=== PATIENT | female | born 1970 | race African-American/Black ===

== ENCOUNTER 2017-04-02 22:47 | Inpatient (IN) ==
[2017-04-03] MEDS ORDERED: KETOROLAC 30 MG/1 ML VIAL IV STA (00:45)
[2017-04-03] MEDS ORDERED: SODIUM CHLORIDE 0.9% 1,000 ML IV STA (00:45)
[2017-04-03] MEDS ORDERED: KETOROLAC 30 MG/1 ML VIAL ONE (00:51)
[2017-04-03 01:16] LABS: Basophils % 0.4 % (0.0-0.8); Hematocrit 34.8 VOL% (35.7-47.0); Hemoglobin 11.4 GM/DL (12.0-16.0); Immature Granulocytes % 0.4 %; Immature Granulocytes Absolute 0.02 #; Lymphocytes # 2.1 10*3/uL (1.4-4.0); Lymphocytes % 37.3 % (21.3-54.2); Mean Corpuscular HGB Conc 32.8 GM/DL (32-36); Mean Corpuscular Hemoglobin 26 PG (27-34); Mean Corpuscular Volume 79.8 FL (87-102); Mean Platelet Volume 10.1 FL (9.6-12.0); Monocytes # 0.4 10*3/uL (0.11-0.8); Monocytes % 6.6 % (1.7-12.7); Neutrophils # 3.1 10*3/uL (1.4-7.4); Neutrophils % 55.3 % (38.7-73.9); Platelet Count 200 T/CUMM (130-400); Red Blood Count 4.36 MC/CUMM (3.8-5.5); Red Cell Distribution Width 15.5 % (9.3-17.3); White Blood Count 5.6 T/CUMM (4-12)
[2017-04-03 01:31] LABS: Apearance,Urine CLEAR (Clear); Bilirubin,Urine Negative (Negative); Blood, Urine Negative (Negative); Glucose,Urine (UA) Negative (Negative); Ketones,Urine Negative (Negative); Nitrite,Urine Negative (Negative); Protein,Urine Negative; RBC,Urine <1 /HPF (0-4); Squamous Epithelial Cell,Urine Occasional /HPF (0-10); Urine Color Straw (Yellow); Urine Specific Gravity 1.009 (1.001-1.035); Urine Urobilinogen < 2.0 EU/DL (0.2-1.0)
[2017-04-03 01:36] LABS: Albumin 3.6 G/DL (3.4-5.0); Bilirubin,Total 0.4 MG/DL (0.2-1.0); Osmolality,Calculated 276.5 MOS/KG (273-304); Potassium 3.7 MMOL/L (3.5-5.1); Total Protein 7.1 G/DL (6.4-8.3)
[2017-04-03] MEDS ORDERED: ONDANSETRON 4 MG/2 ML VIAL IV STA (01:37)
[2017-04-03] MEDS ORDERED: HYDROmorphone 2 MG/1 ML VIAL IV STA (01:37)
[2017-04-03] MEDS ORDERED: ONDANSETRON 4 MG/2 ML VIAL ONE (01:39)
[2017-04-03] MEDS ORDERED: HYDROmorphone 2 MG/1 ML VIAL ONE (01:40)
[2017-04-03] MEDS ORDERED: amLODIPine 5 MG TABLET PO STA (03:01)
[2017-04-03] MEDS ORDERED: amLODIPine 5 MG TABLET ONE (03:03)
[2017-04-03] MEDS ORDERED: DOCUSATE SODIUM 100 MG CAPSULE PO PRN (04:26)
[2017-04-03] MEDS: ENOXAPARIN 40 MG/0.4 ML SYRINGE SUBCUT SCH (05:29)
[2017-04-03] MEDS: SODIUM CHLORIDE 0.45% 1,000 ML IV SCH ×2 (05:30→20:45)
[2017-04-03] MEDS ORDERED: INFLUENZA VIRUS VACCINE 0.5 ML SYRINGE IM ONE (06:00)
[2017-04-03] MEDS: amLODIPine 5 MG TABLET PO SCH (09:26)
[2017-04-03] MEDS: TRIAMTERENE/HCTZ 37.5-25 MG CAPSULE PO SCH (09:26)
[2017-04-03] MEDS: HYDROmorphone 2 MG/1 ML VIAL IV PRN ×2 (09:27→20:35)
[2017-04-04] MEDS: ENOXAPARIN 40 MG/0.4 ML SYRINGE SUBCUT SCH (06:17)
[2017-04-04] MEDS: HYDROmorphone 2 MG/1 ML VIAL IV PRN ×2 (07:53→13:24)
[2017-04-04 12:18] VITALS: BP 151/72
[2017-04-04] MEDS: amLODIPine 5 MG TABLET PO SCH (12:23)
[2017-04-04] MEDS: TRIAMTERENE/HCTZ 37.5-25 MG CAPSULE PO SCH (12:23)
[2017-04-04] MEDS: SODIUM CHLORIDE 0.45% 1,000 ML IV SCH (13:56)
== END 2017-04-04 14:05 | disposition home or self-care (01) | DRG 392 ==
LOC: N.ED 22:47 → SUPCPDRO 04-03 03:46 → N.EDINP 04-03 03:46 → N.4E 04-03 04:32